=== PATIENT | male | born 1970 | race Caucasian/White ===

== ENCOUNTER → 2019-10-10 | Emergency (ER) | payer OTHER ==
[~2019-10-10] VITALS: Ht 177.8 cm; Wt 102.1 kg
[~2019-10-10] MED LIST: GLUCOPHAGE XR500 MG; IMODIUM A-D2 MG PO; PEPCID40 MG PO; TUSSI PRES-B L120 M1 PO; ZITHROMAX TRI-500 MG PO; ZOFRAN4 MG PO
== END | disposition home or self-care (01) ==
LOC: ER 18:30
DX: J31.0 Chronic rhinitis (principal)